=== PATIENT | male | born 1955 | race Caucasian/White ===

== ENCOUNTER → 2020-11-02 11:29 | Outpatient (BNVA) | payer OTHER, SELFPAY | PROVIDERS: PCP Internal Medicine; Visit Provider Physician Assistant ==

== ENCOUNTER 2020-12-14 10:10 | Day surgery (SDC) | payer MEDICARE, OTHER, SELFPAY ==
[2020-12-09 12:25] VITALS: BMI 25.3
--- NOTE | 2020-12-13 11:59 | HO.ANESPROP2 ---
Documented by User: Karmen Mcnally 12/13/20 12:00 HPI - Anesthesia Eval Consult details Narrative: 65yo M for Colonoscopy PMFSH Active Problems Active Problems: All Active Problems (Updated 12/09/20 @ 12:29 by Yanely Granados) Encounter for screening colonoscopy (Acute) HTN (hypertension) (Acute) Past Medical History Medical History Anxiety and depression Arthritis COVID-19 vaccine series completed HTN (hypertension) Left knee injury Family History Family History Maternal Grandfather Heart disease Paternal Grandmother Breast cancer Surgical History Surgical History H/O arthroscopic knee surgery Hx of colonoscopy Social History Social History Household Members: Family Alcohol intake: current Alcohol intake frequency: a few times a month Patient Tobacco Use Status: Former Tobacco user Quit Date: 2010 Tobacco use type: Cigarette Use of substances other than those prescribed or required for medical reasons: Yes Substance Use Type: Marijuana Substance Use Frequency: Daily Are you DNR?: No Advance Directives: No Advance Directives Information Provided: No Advance Directives on File: No Current occupational status: disabled Meds Allergies Allergy/AdvReac Type Severity Reaction Status Date / Time No Known Allergies Allergy Verified 12/09/20 12:25 Home Medications Medication Instructions Recorded Confirmed Last Taken Type aspirin 81 mg tablet,delayed 81 mg PO DAILY 11/02/20 12/09/20 12/14/20 History release hydrochlorothiazide 25 mg tablet 25 mg PO DAILY 11/02/20 12/09/20 12/14/20 History lovastatin 40 mg tablet 80 mg PO QPM 11/02/20 12/09/20 Unknown History metoprolol succinate 50 mg 50 mg PO DAILY 11/02/20 12/09/20 12/14/20 History tablet,extended release 24 hr paroxetine HCl 40 mg tablet 40 mg PO DAILY 11/02/20 12/09/20 12/14/20 History Exam Exam Date and Time: December 13, 2020 1159 Height,Weight and Vital Signs: Height 6 ft Weight 84.822 kg Assessment and Plan Assessment Anesthesia Assessment: Chart Reviewed Documented by User: Naty Everett 12/14/20 11:18 PMFSH Past Medical History Medical History Anxiety and depression Arthritis COVID-19 vaccine series completed HTN (hypertension) Left knee injury Family History Family History Maternal Grandfather Heart disease Paternal Grandmother Breast cancer Surgical History Surgical History H/O arthroscopic knee surgery Hx of colonoscopy Social History Social History Household Members: Family Alcohol intake: current Alcohol intake frequency: a few times a month Patient Tobacco Use Status: Former Tobacco user Quit Date: 2010 Tobacco use type: Cigarette Use of substances other than those prescribed or required for medical reasons: Yes Substance Use Type: Marijuana Substance Use Frequency: Daily Are you DNR?: No Advance Directives: No Advance Directives Information Provided: No Advance Directives on File: No Current occupational status: disabled Meds Allergies Allergy/AdvReac Type Severity Reaction Status Date / Time No Known Allergies Allergy Verified 12/09/20 12:25 Home Medications Medication Instructions Recorded Confirmed Last Taken Type aspirin 81 mg tablet,delayed 81 mg PO DAILY 11/02/20 12/09/20 12/14/20 History release hydrochlorothiazide 25 mg tablet 25 mg PO DAILY 11/02/20 12/09/20 12/14/20 History lovastatin 40 mg tablet 80 mg PO QPM 11/02/20 12/09/20 Unknown History metoprolol succinate 50 mg 50 mg PO DAILY 11/02/20 12/09/20 12/14/20 History tablet,extended release 24 hr paroxetine HCl 40 mg tablet 40 mg PO DAILY 11/02/20 12/09/20 12/14/20 History Exam Airway Mallampati Class: II TM Dist: >3cm Neck ROM: Full
[2020-12-14 10:37] VITALS: BP 145/90; PULSE 90; RESP 16; TEMP 36.5; O2SAT 98
[2020-12-14] MEDS: Lactated Ringers 1,000 ML 100 ML IVCONT (10:51)
--- NOTE | 2020-12-14 11:17 | MHC.SHP ---
Pre-Procedural Eval Section B Chief Complaint: Screening Relevant Family History (Specify if Yes): No Relevant Social History: Tobacco Use Present Medications: see Short Stay Collaborative assessment Medical History: Significant History (Anxiety and depression Arthritis COVID-19 vaccine series completed HTN (hypertension) Left knee injury) History of Previous Operations: Relevant previous surgery/procedure and date(s) (H/O arthroscopic knee surgery Hx of colonoscopy) Allergies: Allergies Allergy/AdvReac Type Severity Reaction Status Date / Time No Known Allergies Allergy Verified 12/09/20 12:25 Review of Systems Sugical H&P ROS: Negative: Constitution, Cardiovascular, Respiratory, Neurological, Psychiatric, Hem-Onc, Allergic/Immunologic, Gastrointestinal, Genitourinary, Musculoskeletal, Integumentary, Endocrine and Eyes/Ears/Nose/Throat Exam Surgical H&P Exam: Normal: HEENT, Normal: Heart, Normal: Lungs, Normal: Extremities, Normal: Abdomen, Normal: Skin and Normal: Neurological Plan Diagnosis/Plan: Unchanged I have reviewed the history and physical and performed a pertinent physical examination on my patient. No changes have occurred unless specified.
--- NOTE | 2020-12-14 11:56 | P.OP_ITS ---
Operative Note Operative Note Date of Service: 12/14/20 Narrative: Operative Information Procedure Description: Colonoscopy COLONOSCOPY Instrument: Olympus variable stiffness pediatric scope 190L Colonoscopy Monitoring: Vital signs and clinical assessment, continuous EKG monitoring, Pulse oximetry, Carbon Dioxide monitoring and blood pressure monitoring were done throughout the procedure. Colon withdrawal time was 14 minutes. Procedure: The patient was placed in the left lateral decubitis position and pre-procedure medications were administered. After a digital rectal examination of the ano-rectum, the video colonoscope was inserted into the rectum and advanced through the colon to the cecum/TI. The colonoscope was slowly withdrawn in a retrograde panoramic fashion and the colon mucosa was carefully examined including a retroflexed view of the rectum. Findings and interventions are described below. Procedure Difficulty:easy Findings: Terminal Ileum-normal Cecum:normal Ascending Colon: normal Transverse Colon -normal Descending Colon: 10-12 mm sessile polyp removed with cold snare Sigmoid Colon: moderate severe diverticular disease Rectum: Retroflexion with moderate large, slightly inflammed internal hemorrhoids, grade II, 6-7 mm sessile polyp removed with forceps Anorectum - internal hemorrhoids seen at anal verge Colon preparation: [place] Bowel Preparation Scale Right colon; 2 Transverse colon: 3 Left colon; 3 (0 = Unprepared colon segment with mucosa not seen due to solid stool that cannot be cleared. 1 = Portion of mucosa of the colon segment seen, but other areas of the colon segment not well seen due to staining, residual stool and/or opaque liquid. 2 = Minor amount of residual staining, small fragments of stool and/or opaque liquid, but mucosa of colon segment seen well. 3 = Entire mucosa of colon segment seen well with no residual staining, small fragments of stool or opaque liquid) Impression and Post Procedure Diagnosis: polyps internal hemorrhoids diverticular disease Plan: High fiber diet leaflet Avoid straining at stool, epsom salts and sitz bath, anusol supps or cream Repeat Colonoscopy in 5-6 years or earlier if clinically indicated Above findings were reviewed with the patient and relevant handouts were provided if indicated.
--- NOTE | 2020-12-14 11:56 | P.BOP_ITS ---
Brief Operative Note Date of Service: 12/14/20 Pre-op diagnosis: colon screening Post-op diagnosis: same Procedure: see op note Surgeon: Gene Keita MD Anesthesia: MAC Was an Business Systems Lead used for this Procedure?: No Estimated blood loss (mL): 0 Condition: stable Disposition: PACU
[2020-12-14 12:00] VITALS: BP 85/58; PULSE 111; RESP 16; TEMP 36.4; O2SAT 94
[2020-12-14 12:14] VITALS: BP 92/60; PULSE 88; RESP 16; O2SAT 95
[2020-12-14 12:18] VITALS: BP 100/71; PULSE 87; RESP 16; TEMP 36.4; O2SAT 97
== END 2020-12-14 12:50 | disposition home or self-care (01) ==
PROVIDERS: PCP Internal Medicine; Visit Provider Internal Medicine Gastroenterology
PROC: 0DJD8ZZ Inspection of Lower Intestinal Tract, Via Natural or Artificial Opening Endoscopic (ICD-10-PCS; CPT 45378; principal; 2020-12-14 11:00)
DX: Z12.11 Encounter for screening for malignant neoplasm of colon (principal); D12.4 Benign neoplasm of descending colon; K62.1 Rectal polyp; K57.30 Diverticulosis of large intestine without perforation or abscess without bleeding; K64.1 Second degree hemorrhoids; I10 Essential (primary) hypertension; F32.9 Major depressive disorder, single episode, unspecified; F41.8 Other specified anxiety disorders; Z79.82 Long term (current) use of aspirin; Z79.899 Other long term (current) drug therapy; Z87.891 Personal history of nicotine dependence
CPT/HCPCS: 45385; 45380; 88305

== ENCOUNTER → 2020-12-29 13:06 | Outpatient (BNVA) | payer OTHER, SELFPAY | PROVIDERS: PCP Internal Medicine; Visit Provider Physician Assistant ==